=== PATIENT | female | born 1995 ===

== ENCOUNTER 2022-10-17 14:58 | Emergency (ER) | payer OTHER ==
--- NOTE | 2022-10-17 15:13 | ED Physician Documentation ---
PD HPI URI - Stated complaint Stated Complaint: SORE THRT,MTH SWELLING - Chief complaint Chief Complaint: Heent - History obtained from History obtained from: Patient - Additional information Additional information: About 3 days of sore throat and cough. Some difficulty swallowing. No fevers. PD PAST MEDICAL HISTORY - Present Medications Home Medications: Ambulatory Orders Medication Instructions Recorded Confirmed No Known Home Medications 10/17/22 10/17/22 - Allergies Allergies/Adverse Reactions: Allergies Allergy/AdvReac Type Severity Reaction Status Date / Time No Known Drug Allergies Allergy Verified 10/17/22 15:02 PD ED PE NORMAL - Vitals Vital signs reviewed: Yes - General General: Alert and oriented X 3, No acute distress - HEENT HEENT: PERRL, EOMI - Neck Neck: Other (Red tonsillar pillars with anterior cervical adenopathy. No exudates.) - Respiratory Respiratory: No respiratory distress, Clear bilaterally - Abdomen Abdomen: Non tender - Neuro Neuro: Alert and oriented X 3, Normal speech Results - Vitals Vitals: Vital Signs - 24 hr 10/17/22 15:03 Temperature 37 C Heart Rate 97 Respiratory 16 Rate Blood Pressure 115/74 O2 Saturation 100 Oxygen O2 Source Room air - Labs Labs: Laboratory Tests 10/17/22 15:05 Group A Strep Rapid POSITIVE H PD Medical Decision Making - ED course ED course: 27-year-old woman presents with pharyngitis. Found to be strep positive. After discussion she would like to go ahead with long-acting IM penicillin as opposed to oral. She did receive dexamethasone orally here for symptom relief as well. Departure - Departure Disposition: 01 Home, Self Care Clinical Impression: Strep pharyngitis Condition: Good Record reviewed to determine appropriate education?: Yes Instructions: ED Strep Pharyngitis Conf Comments: You are found to be positive for strep throat, you did receive 1,200,000 units of intramuscular long-acting penicillin here. That is sufficient for the entire treatment course. Return if worse.
[2022-10-17] MEDS: CHERRY SYRUP 10 ML UDC PO ONE (15:17)
[2022-10-17] MEDS: DEXAMETHASONE 10 MG/ML VIAL PO STA (15:17)
[2022-10-17 15:23] LABS: RAPID STREP SCREEN POSITIVE (Negative)
[2022-10-17] MEDS: PENICILLIN G BENZATHINE 600,000 UNIT/ML SYRINGE IM STA (15:41)
[2022-10-17 16:03] VITALS: BP 119/72
== END 2022-10-17 16:02 | disposition home or self-care (01) ==
LOC: ED 14:58
DX: J02.0 Streptococcal pharyngitis (principal)
CPT/HCPCS: 87430; 96372; 99283; A9270

== ENCOUNTER 2023-10-13 15:40 | Outpatient (CLI) | payer OTHER ==
[~2023-10-13 15:40] MED LIST: GADOTERATE MEGLUMINE 7.5 MMOL/15 ML VIAL ONE
[2023-10-13] MEDS: GADOTERATE MEGLUMINE 7.5 MMOL/15 ML VIAL IVP ONE (19:11)
--- NOTE | 2023-10-13 19:55 | MRI Report ---
PROCEDURE: Wrist RT W/WO INDICATIONS: MASS Additional information: 28-year-old female with volar radial wrist mass. CONTRAST: 10.4ml clariscan TECHNIQUE: Noncontrast coronal T1 spin echo with and without fat saturation, proton density fast spin echo and T 2 fast spin echo with fat saturation; coronal 3-D gradient echo, axial T1 spin echo and T2 fast spin echo with fat saturation, sagittal T1 spin echo through the wrist. Post-contrast axial, coronal, and sagittal T1 spin echo with fat saturation through the wrist. COMPARISON: No previous study is available for comparison. FINDINGS: Image quality: Excellent. Bones and cartilage: No suspicious osseous enhancement. The carpal bones are normally aligned. No bone marrow contusions or fractures. No evidence for avascular necrosis. Overlying cartilage surfa grisel appear normal. Carpal ligaments: The scapholunate and lunotriquetral ligaments appear intact. On sagittal images, the pisohamate ligament appears intact. Triangular fibrocartilage complex: The triangular fibrocartilage appears intact. Tendons and soft tissues: There is a [id number] nonenhancing ganglion cyst at the volar radial aspect of the radiocarpal joint measuring approximately 7 x 5 x 6 mm. No solid enhancing soft tissue mass. At the margins of the [id number] of this exam along the volar aspect of the distal metacarp al shafts, there appears to be partial tearing of the 3rd flexor tendons with superimposed tenosynovi tis. However, this is incompletely evaluated. The carpal tunnel structures appear normal, including t he median nerve. The ulnar nerve appears normal within Guyon's canal. All six extensor tendon karen rtments demonstrate normal morphology, without pathologic tendon sheath fluid. IMPRESSION: 1.Benign ganglion cyst along the volar radial aspect of the radiocarpal joint measures up to 7 mm. 2.Signal abnormality within the 3rd flexor digitorum tendons at the level of the distal metacarpals i s only partially included at the margins of the [id number] of this exam, but is suspicious for at least partial tendon tearing. MRI of the hand could be performed for further evaluation if indicated clinically. Reviewed by: Adan Donato MD on 10/13/2023 7:54 PM PDT Approved by: Adan Donato MD on 10/13/2023 7:54 PM PDT Station ID: [id number]
== END 2023-10-13 15:41 | disposition home or self-care (01) ==
LOC: DI 15:40
PROVIDERS: ATTEND Orthopaedic Surgery
DX: M67.431 Ganglion, right wrist (principal); R93.6 Abnormal findings on diagnostic imaging of limbs